=== PATIENT | female | born 1970 | race Caucasian/White ===

== ENCOUNTER → 2024-11-04 | Outpatient (CLI) | payer BC, SELFPAY ==
--- NOTE | 2024-11-04 09:16 | XR_ITS ---
Examination: PA lateral chest 2 views TECHNIQUE: Upright PA lateral chest 2 views Exam date and time: November 04, 2024 0923 hours INDICATIONS: Coughing beginning one month ago FINDINGS: Normal heart size Lungs are clear. Intact osseous structures IMPRESSION: No active disease
== END | disposition home or self-care (01) ==
LOC: CDIM 08:50
PROVIDERS: PCP Physician Assistant; Referring Provider Physician Assistant; Visit Provider Physician Assistant
DX: R05.9 Cough, unspecified (principal)
CPT/HCPCS: 71046